=== PATIENT | male | born 1945 | race Native Hawaiian/Other Pacific Islander ===

== ENCOUNTER 2016-09-07 07:09 | Outpatient (CLI) | payer OTHER ==
[2016-09-07 08:01] LABS: PLATELET COUNT 261 K/uL (142-355)
[2016-09-07 08:21] LABS: POTASSIUM 3.8 mmol/L (3.6-5.2); SODIUM 135 mmol/L (136-145)
== END 2016-09-07 08:10 | disposition home or self-care (01) ==
LOC: LABW 07:09
PROVIDERS: Internal Medicine
DX: E11.9 Type 2 diabetes mellitus without complications (principal); I10 Essential (primary) hypertension; E03.8 Other specified hypothyroidism
CPT/HCPCS: 36415; 80053; 80061; 81000; 82043; 82570; 83036; 84153; 84439; 84443; 85027

== ENCOUNTER 2017-08-24 11:24 | Outpatient (CLI) | payer OTHER | END 2017-08-24 23:28 | disposition home or self-care (01) | LOC: US 11:24 | DX: M79.604 Pain in right leg (principal) ==

== ENCOUNTER 2017-08-25 08:02 | Outpatient (CLI) | payer OTHER ==
[2017-08-25 08:34] LABS: PLATELET COUNT 279 K/uL (142-355)
[2017-08-25 08:53] LABS: POTASSIUM 4.1 mmol/L (3.6-5.2)
== END 2017-08-25 21:16 | disposition home or self-care (01) ==
LOC: LABW 08:02
PROVIDERS: Internal Medicine
DX: E11.9 Type 2 diabetes mellitus without complications (principal); E03.8 Other specified hypothyroidism
CPT/HCPCS: 36415; 80053; 80061; 81000; 82043; 82570; 83036; 84439; 84443; 85027

== ENCOUNTER 2019-03-16 10:19 | Emergency (ER) | payer OTHER ==
[~2019-03-16] VITALS: Ht 188 cm; Wt 148.3 kg
[2019-03-16 10:21] VITALS: TEMP 97.5
[2019-03-16] MEDS ORDERED: AMLODIPINE BESYLATE PO (10:30)
[2019-03-16] MEDS ORDERED: BENA20TA2 PO (10:30)
[2019-03-16] MEDS ORDERED: TIROSINT75 MCG PO (10:31)
[2019-03-16 11:03] LABS: PLATELET COUNT 264 K/uL (142-355)
[2019-03-16 11:07] LABS: POTASSIUM 3.9 mmol/L (3.6-5.2)
[2019-03-16 11:20] LABS: PARTIAL THROMBOPLASTIN TIME 24.1 SECONDS (24.5-33.6)
[2019-03-16 13:09] VITALS: BP 148/81
== END 2019-03-16 14:21 | disposition home or self-care (01) ==
LOC: ED 10:19
PROVIDERS: Family Medicine
DX: G45.9 Transient cerebral ischemic attack, unspecified (principal); I10 Essential (primary) hypertension
CPT/HCPCS: 80053; 81000; 85027; 85610; 85730; 99284

== ENCOUNTER 2019-03-21 07:56 | Outpatient (CLI) | payer OTHER ==
[~2019-03-21 07:56] MED LIST: AMLODIPINE BESYLATE PO; BENA20TA2 PO; TIROSINT75 MCG PO
[2019-03-21 08:14] LABS: PLATELET COUNT 276 K/uL (142-355)
[2019-03-21 08:46] LABS: POTASSIUM 4.1 mmol/L (3.6-5.2)
== END 2019-03-21 22:26 | disposition home or self-care (01) ==
LOC: LABW 07:56
PROVIDERS: Internal Medicine
DX: I10 Essential (primary) hypertension (principal); E03.8 Other specified hypothyroidism; Z79.899 Other long term (current) drug therapy
CPT/HCPCS: 36415; 80053; 80061; 81000; 83036; 84439; 84443; 85027

== ENCOUNTER 2019-03-27 08:01 | Outpatient (CLI) | payer OTHER | END 2019-03-27 19:58 | disposition home or self-care (01) | LOC: MRI 08:01 | DX: G45.9 Transient cerebral ischemic attack, unspecified (principal) ==

== ENCOUNTER 2020-03-10 14:38 | Outpatient (CLI) | payer OTHER | END 2020-03-10 20:55 | disposition home or self-care (01) | LOC: RAD 14:38 | PROVIDERS: ATTEND Internal Medicine | DX: R05 Cough (principal) ==

== ENCOUNTER 2021-01-20 11:53 | Inpatient (IN) | payer OTHER ==
[2021-01-20] VITALS (11 sets, daily range): BP systolic 132–192; BP diastolic 76–113; TEMP 98.4–99.4; Ht 188 cm; Wt 157.4 kg
[~2021-01-20] VITALS: Ht 188 cm; Wt 157.4 kg
[2021-01-20 13:06] LABS: PLATELET COUNT 251 K/uL (142-355)
[2021-01-20 13:12] LABS: POTASSIUM 3.8 mmol/L (3.6-5.2)
[2021-01-20 13:17] LABS: PARTIAL THROMBOPLASTIN TIME 26.5 SECONDS (24.5-33.6)
[2021-01-21] VITALS: BP 123/50; TEMP 97.4
[2021-01-21 04:23] VITALS: BP 144/70; TEMP 98.4
[2021-01-21 04:57] LABS: PLATELET COUNT 231 K/uL (142-355)
[2021-01-21 05:20] LABS: POTASSIUM 4.2 mmol/L (3.6-5.2)
[2021-01-21 08:00] VITALS: BP 162/99; TEMP 99
[2021-01-21 12:00] VITALS: BP 153/87; TEMP 97.7
[2021-01-21 16:00] VITALS: BP 163/88; TEMP 97.7
[2021-01-21 20:26] VITALS: BP 179/99; TEMP 98.6
[2021-01-22] VITALS (10 sets, daily range): BP systolic 109–165; BP diastolic 61–105; TEMP 97.5–98.9
[2021-01-22 05:01] LABS: POTASSIUM 4.6 mmol/L (3.6-5.2)
[2021-01-22 05:02] LABS: PLATELET COUNT 272 K/uL (142-355)
[2021-01-23] VITALS (17 sets, daily range): BP systolic 98–149; BP diastolic 40–118; TEMP 97
[2021-01-23 05:09] LABS: POTASSIUM 5.5 mmol/L (3.6-5.2)
[2021-01-23 06:58] LABS: PLATELET COUNT 338 K/uL (142-355)
[2021-01-23 07:02] LABS: POTASSIUM 5.7 mmol/L (3.6-5.2)
[2021-01-24] VITALS (31 sets, daily range): BP systolic 87–124; BP diastolic 40–90; TEMP 95.6–99.7
[2021-01-24 02:11] LABS: PLATELET COUNT 363 K/uL (142-355)
[2021-01-24 02:30] LABS: POTASSIUM 6.7 mmol/L (3.6-5.2)
[2021-01-24 08:59] LABS: PLATELET COUNT 358 K/uL (142-355)
[2021-01-24 09:15] LABS: POTASSIUM 6.1 mmol/L (3.6-5.2)
[2021-01-25] VITALS (23 sets, daily range): BP systolic 89–119; BP diastolic 42–72; TEMP 99.2–100
[2021-01-25 04:57] LABS: PLATELET COUNT 319 K/uL (142-355)
[2021-01-25 05:08] LABS: POTASSIUM 5.5 mmol/L (3.6-5.2)
[2021-01-26] VITALS (8 sets, daily range): BP systolic 125–137; BP diastolic 72–88; TEMP 97.9–99.3
[2021-01-26 05:39] LABS: POTASSIUM 6.2 mmol/L (3.6-5.2)
== END 2021-01-26 13:51 | disposition short-term general hospital (02) | DRG 871 ==
LOC: ED 11:53 → MED/SURG 15:00 → ICU 01-22 10:08
PROVIDERS: Emergency Medicine; Hospitalist; Internal Medicine; ADMIT Internal Medicine Endocrinology, Diabetes & Metabolism; ATTEND Internal Medicine Endocrinology, Diabetes & Metabolism
DX: A41.89 Other specified sepsis (principal); U07.1 COVID-19; J18.8 Other pneumonia, unspecified organism; J96.01 Acute respiratory failure with hypoxia; N17.8 Other acute kidney failure; E87.5 Hyperkalemia; I48.91 Unspecified atrial fibrillation; E66.01 Morbid (severe) obesity due to excess calories; E03.8 Other specified hypothyroidism; K21.9 Gastro-esophageal reflux disease without esophagitis; I10 Essential (primary) hypertension
CPT/HCPCS: 36415; 36600; 80048; 80053; 80202; 81000; 81002; 82550; 82805; 83605; 83880; 84443; 84484; 85027; 85610; 85730; 87040; 87635; 93005; 94640; 94660; 94664; 94760; 96360; 96361; 96375; 99284; J0132; J0360; J0456; J0610; J0696; J1100; J1650; J1815; J1940; J2270; J2405; J3370; J3490; J7060; P9047; U0003